=== PATIENT | male | born 1960 | race Caucasian/White ===

== ENCOUNTER 2025-03-08 09:39 | Inpatient (IN) | payer MEDICARE ==
[~2025-03-08] VITALS: Ht 177.8 cm; Wt 101.2 kg
[2025-03-08 11:27] LABS: Source, Urine Clean Catch
[2025-03-08 11:32] LABS: Bilirubin, Urine Neg (Neg); Blood, Urine Neg (Neg); Glucose Qualitative, Urine Neg (Neg); Ketones, Urine Neg (Neg); Leukocyte Esterase, Urine Neg (Neg); Nitrite, Urine Neg (Neg); Protein, Urine 1+ (Neg); Specific Gravity, Urine 1.015 (1.003-1.022); Urobilinogen, Urine NORM (Normal)
[2025-03-08 11:35] LABS: Appearance, Urine Clear (Clear); Color, Urine Yellow (P-Yellow)
[2025-03-08 11:35] LABS: BASOPHILS ABSOLUTE AUTO 0.05 K/mm3 (0.00-0.23); BASOPHILS PERCENT AUTO 1 % (0-2); EOSINOPHILS ABSOLUTE AUTO 0.11 K/mm3 (0.00-0.68); EOSINOPHILS PERCENT AUTO 2 % (0-6); Hematocrit 38.7 % (37.0-53.0); IMMATURE GRAN ABSOLUTE AUTO 0.06 K/mm3 (0.00-0.10); IMMATURE GRAN PERCENT AUTO 1 % (0-1); LYMPHOCYTES ABSOLUTE AUTO 0.95 K/mm3 (0.84-5.20); LYMPHOCYTES PERCENT AUTO 16 % (21-46); MONOCYTES ABSOLUTE AUTO 0.43 K/mm3 (0.16-1.47); MONOCYTES PERCENT AUTO 7 % (4-13); Mean Corpuscular HGB 33.3 pg (26.0-34.0); Mean Corpuscular HGB Conc 36.2 g/dL (31.5-36.5); Mean Corpuscular Volume 92 fL (80-100); Mean Platelet Volume 9.9 fL (9.1-12.4); NEUTROPHILS ABSOLUTE AUTO 4.48 K/mm3 (1.96-9.15); NEUTROPHILS PERCENT AUTO 74 % (41-73); Platelet Count 97 K/mm3 (150-400); RDW Coefficient Variation 12.9 % (11.7-14.2); RDW Standard Deviation 43.8 fL (35.1-46.3); White Blood Cell Count 6.08 K/mm3 (4.00-11.30)
[2025-03-08 11:49] LABS: Bun/Creatinine Ratio 16.4 (12.0-20.0); C-REACTIVE PROTEIN, EXT RANGE 3.66 mg/dL (0.000-0.300); Calcium, Blood 8.6 mg/dL (8.5-10.1); Creatinine, Blood 0.73 mg/dL (0.60-1.20)
[2025-03-08] MEDS ORDERED: NS 1,000 ML IV SCH ×2 (11:55→16:35)
[2025-03-08 12:11] LABS: Influenza A, PCR NEGATIVE (NEGATIVE); Influenza B, PCR NEGATIVE (NEGATIVE); Resp Syncytial Virus, PCR NEGATIVE (NEGATIVE); SARS-Cov-2 (COVID-19) PCR, MMC NEGATIVE (NEGATIVE)
[2025-03-08] MEDS ORDERED: HYDCHL25 PO (14:58)
[2025-03-08] MEDS ORDERED: LISI20 PO (15:00)
[2025-03-08] MEDS ORDERED: TAMSULOSIN HCL0.4 M1 PO (15:01)
[2025-03-08] MEDS ORDERED: ROSUVASTATIN CAL5 MG PO (15:01)
[2025-03-08] MEDS ORDERED: FOLIC ACID480 MCG PO (15:06)
[2025-03-08] MEDS ORDERED: ERGO400 (15:07)
[2025-03-08] MEDS ORDERED: Aspir 8181 MG PO (15:07)
[2025-03-08] MEDS ORDERED: MULVITA PO (15:08)
[2025-03-08] MEDS ORDERED: FISH OIL 1,4001 EAC2 (15:08)
[2025-03-08 15:11] LABS: Bun/Creatinine Ratio 14.5 (12.0-20.0); Calcium, Blood 8.2 mg/dL (8.5-10.1); Creatinine, Blood 0.76 mg/dL (0.60-1.20); Potassium, Blood 3.5 mmol/L (3.5-5.5)
[2025-03-08] MEDS ORDERED: [UNRECOGNIZED DRUG - OTHER] PO (16:51)
[2025-03-08] MEDS ORDERED: GLUCHON PO ×2 (16:53)
[2025-03-08] MEDS ORDERED: Garlic500 MG PO (16:54)
[2025-03-08 17:26] LABS: Bun/Creatinine Ratio 16.5 (12.0-20.0); Calcium, Blood 8.4 mg/dL (8.5-10.1); Creatinine, Blood 0.67 mg/dL (0.60-1.20); Potassium, Blood 3.3 mmol/L (3.5-5.5)
--- NOTE | 2025-03-08 18:40 | NUR ---
ADMISSION NOTE: PATIENT CAME TO MEDICAL FLOOR AT 1630 VIA BED FROM DIRECTOR OF SUPPLY CHAIN. ADMISSION, MED REC, AND ASSESSMENT COMPLETE. PATIENT IS A&OX4, PLEASANT AND COOPERATIVE c CARE. PATIENT AMBULATED TO BTHRM W/ SBA AND GAIT WAS STEADY. PATIENT IS IND IN ROOM. PATIENT DENIES DIZZINESS, HEADACHE, SOB, CHEST PAIN/PRESSURE. SKIN ASSESSMENT COMPLETE FROM PRIMARY RN AND SECOND RN TO VERIFY. PIV IN RAC RUNNING NS @ 200MLS/HR. PATIENT ORIENTED TO ROOM AND CALL LIGHT. PATIENT VERBALIZES NEEDS AND CALLS APPROPRIATELY. PATIENT RECIEVED DINNER TRAY AND IS TOLERATING IT WELL. BED IN LOWEST POSITION AND CALL LIGHT IN REACH.
[2025-03-08 20:03] VITALS: BP 134/74
[2025-03-08 20:55] LABS: Bun/Creatinine Ratio 14.4 (12.0-20.0); Calcium, Blood 8.2 mg/dL (8.5-10.1); Creatinine, Blood 0.84 mg/dL (0.60-1.20); Potassium, Blood 3.5 mmol/L (3.5-5.5)
[2025-03-09 01:20] LABS: Bun/Creatinine Ratio 18.3 (12.0-20.0); Calcium, Blood 7.7 mg/dL (8.5-10.1); Creatinine, Blood 0.77 mg/dL (0.60-1.20); Potassium, Blood 3.6 mmol/L (3.5-5.5)
--- NOTE | 2025-03-09 03:14 | NUR ---
SHIFT SUMMARY PATIENT HAS BEEN SLEEPING INTERMITTANTLY BETWEEN NURSING CARE. LATEST NA LEVEL IS 126 AND K LEVEL IS 3.6. PATIENT STATES HE IS FEELING MUCH BETTER. PATIENT IS ALERT AND ORIENTED X4. VITAL SIGNS ARE STABLE. HE HAS HIS CALL LIGHT WITHIN REACH AND HAS AGREED TO CALL WITH ANY REQUESTS OR NEEDS.
[2025-03-09 04:56] VITALS: BP 121/65
[2025-03-09 05:43] LABS: Calcium, Blood 7.9 mg/dL (8.5-10.1); Creatinine, Blood 0.71 mg/dL (0.60-1.20); Potassium, Blood 3.6 mmol/L (3.5-5.5)
[2025-03-09 07:43] VITALS: BP 133/77
[2025-03-09] MEDS ORDERED: Enoxaparin 40 MG/0.4 ML SYR SC SCH (09:00)
[2025-03-09] MEDS ORDERED: NS 1,000 ML IV SCH (09:25)
[2025-03-09] MEDS ORDERED: Tamsulosin HCl 0.4 MG Cap PO SCH (12:00)
[2025-03-09] MEDS ORDERED: Famotidine 20 MG Tab PO ONE (12:55)
[2025-03-09 15:20] VITALS: BP 132/70
[2025-03-09 15:40] LABS: Bun/Creatinine Ratio 14.5 (12.0-20.0); Calcium, Blood 7.7 mg/dL (8.5-10.1); Creatinine, Blood 0.83 mg/dL (0.60-1.20); Potassium, Blood 3.5 mmol/L (3.5-5.5)
--- NOTE | 2025-03-09 16:23 | NUR ---
SHIFT SUMMARY: PATIENT A/OX4, PLEASANT AND COOPERATIVE c CARE. PATIENT DENIES CP/PRESSURE, SOB, N/V AND DIZZINESS. PATIENT REPORTS "HEARTBURN", MEDICATED FOR HEARTBURN PER EMAR c GOOD EFFECT. PATIENT EXPRESSESS THAT HE HAS NOT BEEN SLEEPING FOR THE PAST THREE NIGHTS D/T PERSONAL STUFF THAT HE IS DEALING WITH AND REQUESTING MELATONIN FOR TONIGHT TO HELP HIM SLEEP. NOTIFIED DR. MASON. PER DR. MASON HE WILL PUT AN ORDER IN. PATIENT HAS GREAT APPETITE, CONTINENT OF BAB, AMBULATES TO BATHROOM INDEPENDENTLY. PATIENT HAS PIV TO RAC, INFUSING NS AT 100 MLS/HR. VITAL SIGNS REVIEWED. CALL LIGHT IN REACH.
[2025-03-09] MEDS ORDERED: Melatonin 3 MG Tab PO PRN (16:35)
[2025-03-09 19:26] VITALS: BP 148/80
[2025-03-09] MEDS ORDERED: Famotidine 20 MG Tab PO SCH (21:00)
[2025-03-09] MEDS ORDERED: Lisinopril 20 MG Tab PO SCH (21:00)
[2025-03-10 02:39] VITALS: BP 121/74
--- NOTE | 2025-03-10 03:09 | NUR ---
SHIFT SUMMARY PATIENT IS AWAKE AT THIS TIME AND EATING A SNACK. HE DENIES PAIN TONIGHT. PATIENT STATES HE IS FEELING BETTER. HE IS ORIENTED X4. NS IS INFUSING WITHOUT COMPLICATIONS. PATIENT IS ORIENTED X4. HE HAS HIS CALL LIGHT WITHIN REACH. SAFETY PRECAUTIONS ARE BEING MAINTAINED.
[2025-03-10 05:22] LABS: Hematocrit 31.5 % (37.0-53.0); Hemoglobin 11.3 g/dL (13.5-17.5); Mean Corpuscular HGB 33.8 pg (26.0-34.0); Mean Corpuscular HGB Conc 35.9 g/dL (31.5-36.5); Mean Corpuscular Volume 94 fL (80-100); Mean Platelet Volume 9.6 fL (9.1-12.4); Platelet Count 106 K/mm3 (150-400); RDW Coefficient Variation 13.2 % (11.7-14.2); RDW Standard Deviation 45.4 fL (35.1-46.3); Red Blood Cell Count 3.34 M/mm3 (4.30-5.90); White Blood Cell Count 4.22 K/mm3 (4.00-11.30)
[2025-03-10 06:03] LABS: Albumin, Blood 2.8 g/dL (3.4-5.0); Anion Gap 8 mmol/L (3-11); Blood Urea Nitrogen 11 mg/dL (8-24); CO2, Blood 22 mmol/L (21-32); Chloride, Blood 104 mmol/L (98-108); Creatinine, Blood 0.69 mg/dL (0.60-1.20); Glomerular Filtration Rate 103 (60-); Glucose, Blood 149 mg/dL (70-99); Phosphorus, Blood 2.8 mg/dL (2.5-4.9); Potassium, Blood 3.4 mmol/L (3.5-5.5); Sodium, Blood 131 mmol/L (136-145)
[2025-03-10] MEDS ORDERED: Potassium Chloride 20 MEQ TabCR PO ONE (07:15)
[2025-03-10 08:20] VITALS: BP 131/76
[2025-03-10] MEDS ORDERED: Aspirin 81 MG TabEC PO SCH (09:00)
[2025-03-10] MEDS ORDERED: Multivitamins 1 Tab PO SCH (09:00)
[2025-03-10] MEDS ORDERED: Rosuvastatin Calcium 10 MG Tab PO SCH (09:00)
[2025-03-10] MEDS ORDERED: Cholecalciferol 1000 Unit Tablet (=25MCG) PO SCH (09:00)
--- NOTE | 2025-03-10 13:37 | NUR ---
PT DISCHARGED HOME WITH BROTHER, ALL BELONGINGS WITH PT, EDUCATION PROVIDED.
== END 2025-03-10 11:35 | disposition home or self-care (01) | DRG 641 ==
LOC: ER 09:39 → ERHOLD 09:40 → ER 09:40 → MEDS 09:40 → ERHOLD 16:29 → MEDS 16:29
PROVIDERS: Emergency Medicine; Internal Medicine; ADMIT Family Medicine
DX: E87.1 Hypo-osmolality and hyponatremia (principal); I10 Essential (primary) hypertension; N40.0 Benign prostatic hyperplasia without lower urinary tract symptoms; E78.5 Hyperlipidemia, unspecified; Z66 Do not resuscitate; M19.90 Unspecified osteoarthritis, unspecified site
CPT/HCPCS: 0241U; 36415; 80048; 80069; 83735; 83930; 84300; 84443; 85025; 85027; 86140; 99284; A9270; G0378; J1650; J7030